=== PATIENT | male | born 2000 | race Caucasian/White ===

== ENCOUNTER 2021-02-28 08:17 | Outpatient (CLI) | payer OTHER, SELFPAY ==
--- NOTE | ~2021-02-28 | US_ITS ---
EXAMINATION: US scrotum doppler EXAM DATE: 02/28/2021 10:07 INDICATION: R22.9 - Localized left scrotal swelling, mass and lump. TECHNIQUE: Multiple grayscale and Doppler images of the testicles and scrotum were obtained bilateral ly. There is no prior study for comparison. FINDINGS: Scanning in the left area of concern demonstrated no focal sonographic abnormality. Right testicle measures 4.2 x 3.6 x 1.8 cm and is morphologically normal. Low resistance Doppler kym w confirmed. The epididymis is unremarkable. There is no hydrocele or varicocele. Left testicle measures 4.6 x 3.0 x 2.0 cm and is morphologically normal. Low resistance Doppler flow confirmed. The epididymis is unremarkable. There is no hydrocele or varicocele. IMPRESSION: 1. Unremarkable testicular/scrotal ultrasound exam. Reviewed, dictated and finalized at location A.
== END 2021-02-28 08:18 | disposition home or self-care (01) ==
LOC: ANHIMG 08:18
PROVIDERS: PCP Family Medicine; Visit Provider Family Medicine
DX: R22.9 Localized swelling, mass and lump, unspecified (principal)
CPT/HCPCS: 76870; 93976